=== PATIENT | female | born 1970 | race Two or more races ===

== ENCOUNTER 2023-07-21 15:58 | Emergency (ER) | payer OTHER ==
[~2023-07-21] VITALS: Ht 152.4 cm; Wt 92.5 kg
[2023-07-21] MEDS ORDERED: PLAVIX75 MG (17:19)
[2023-07-21] MEDS ORDERED: CHILDREN'S ASPI81 MG (17:20)
[2023-07-21 23:36] LABS: ABG PH 7.417 (7.35-7.45); ABG PO2 87.3 mmHg (80-100); ABG pCO2 41.4 mmHg (35-45); BASE EXCESS 1.4 mmol/l; SaO2 96.8 %; Tco2 27.3 mmol/l
[2023-07-21 23:37] LABS: allen test SATISFACTORY; o2 21 %; puncture site RADIAL RIGHT
== END 2023-07-21 21:38 | disposition home or self-care (01) ==
LOC: ER 15:59
PROVIDERS: General Practice
DX: F41.9 Anxiety disorder, unspecified (principal)